=== PATIENT | female | born 1970 | race Caucasian/White ===

== ENCOUNTER 2019-09-23 08:52 | Emergency (ER) | payer SELFPAY ==
[2019-09-23] VITALS (7 sets, daily range): BP systolic 92–149; BP diastolic 69–78; PULSE 50–76; RESP 16–20; TEMP 36.7; O2SAT 98–100; BMI 24.5
--- NOTE | 2019-09-23 09:04 | CT_ITS ---
PROCEDURE: CT ABDOMEN PELVIS WO CON CLINICAL INDICATION: pain Left upper quadrant pain radiating to back COMPARISON: No exams were available for comparison TECHNIQUE: Axial images obtained with sagittal and coronal reformats. All CT scans at the facility use one or more dose reduction, viz: automated exposure control, ma/kV adjustment per patient size (including targeted exams where dose is matched to indication, i.e. head), or iterative reconstruction technique. FINDINGS: Lower thorax: The lower lung toussaint are clear and there is no pleural fluid. Cardiac size is normal. ABDOMEN: Liver: No masses or biliary dilatation. Gallbladder: The gallbladder is normal size but shows a subtle heterogenic appearance to the bile raising the possibility of biliary sludge. Consider follow-up ultrasound right upper quadrant for additional evaluation. Pancreas: No masses or peripancreatic fluid collections. Spleen: unremarkable Adrenals: unremarkable Kidneys/ureters: The kidneys are normal in size, there is mild hydronephrotic change left kidney. There is a small 2-3 mm calculus near the UV junction left side. There are clips on both sides of the pelvis likely tubal ligation clips. ABDOMEN & PELVIS: Stomach bowel: The stomach and small bowel appear normal. The appendix is upper limits normal size but partially air-filled and there are no periappendiceal inflammatory changes. Peritoneum: No abnormal fluid collections. No obvious inflammatory changes. No free air. Lymph nodes: No enlarged lymph nodes apparent. Vasculature: No evidence of abdominal aortic aneurysm. No retroperitoneal hemorrhage evident. Bones: No acute fracture PELVIS: Reproductive: The uterus is upper limits of normal in size and mildly retroverted. Bladder: The bladder is decompressed. Appendix: Unremarkable. No distention or periappendiceal phlegmonous change. IMPRESSION: Mild hydronephrotic change left kidney and mild hydroureter proximally with 2-3 mm calculus sitting near the UV junction. Subtle changes of the gallbladder as described above suggesting possible biliary sludge. Dictated by: Dr. Say Hickey MD 09/23/2019 10:[address] Say iHckey MD in [place] 09/23/2019 10:05
[2019-09-23 09:23] LABS: Appearance,Urine CLEAR (Clear); Bilirubin,Urine Negative (Negative); Blood, Urine 1+ (Negative); Color,Urine YELLOW (Yellow); Glucose,Urine (UA) Negative (Negative); Ketones,Urine 1+ (Negative); Leukocyte Esterase,Urine Negative (Negative); Microscopic, Urine URINE MICROSCOPIC (MICROSCOPIC); Nitrate,Urine Negative (Negative); PH,Urine 5.5 (5.0-8.5); Protein,Urine Negative (Negative); Specific Gravity, Urine >= 1.030 (1.005-1.030); Urobilinogen,Urine 0.2 EU/dl (0.2)
[2019-09-23 09:27] LABS: Basophils % 0.3 % (0.1-2.0); Eosinophils # 0.1 K/mm3 (0.0-0.4); Eosinophils % 0.4 % (0.1-12.0); Hematocrit 41.7 % (37.0-47.0); Hemoglobin 14.4 g/dL (12.2-16.2); Lymphocytes # 1.7 K/mm3 (0.7-4.5); Mean Corpuscular HGB Conc 34.6 g/dL (31.8-35.4); Mean Corpuscular Hemoglobin 33.2 pg (27.0-31.2); Mean Platelet Volume 6.9 fl (7.4-10.4); Monocytes # 0.9 K/mm3 (0.1-1.0); Monocytes % 6.3 % (1.7-9.3); Neutrophils # 10.7 K/mm3 (1.8-7.8); Neutrophils % 79.9 % (37.0-80.0); Platelet Count 229 K/mm3 (142-424); Red Blood Count 4.34 M/mm3 (4.20-5.40); Red Cell Distribution Width 14.3 % (11.5-17.5); White Blood Count 13.4 K/mm3 (4.8-10.8)
[2019-09-23 09:29] LABS: Chloride 105 mmol/L (98-107); Potassium 4.4 mmoL/L (3.5-5.1); Sodium 134 mmol/L (136-145)
[2019-09-23 09:32] LABS: Alanine Aminotransferase 22 U/L (12-78); Albumin Level 4.3 g/dl (3.5-5.0); Albumin/Globulin Ratio 1.4 (1.1-1.8); Alkaline Phosphatase 84 U/L (38-126); Anion Gap 10.4 mEq/L (5-15); Aspartate Amino Transferase 64 U/L (14-36); Bilirubin,Total 0.8 mg/dl (0.2-1.3); Blood Urea Nitrogen 14 mg/dl (7-17); Calcium 9.4 mg/dl (8.4-10.2); Carbon Dioxide 23 mmol/L (22.0-30.0); Creatinine Clearance Estimated 58 mL/min (50-200); Estimated Glomerular Filt Rate 53 ml/min (>60); GFR (African American) 64 ML/MIN (>60); Glucose 118 mg/dl (74-100); Total Protein,Serum 7.3 g/dl (6.3-8.2)
[2019-09-23 09:36] LABS: Bacteria,Urine Trace /lpf
--- NOTE | 2019-09-23 10:29 | HMH.EDABDPAI ---
ED Disposition Clinical Impression: Calculus of kidney Disposition: Home, Self-Care Condition on Discharge: Good Instructions: DI for Acute Abdomen, DI for Acute Pain -- Child Referrals: Provider,Referral, [Primary Care Provider] - - Critical Care Critical Care Time: No Attestation: On 09/23/19, the high probability of a clinically significant, sudden or life threatening deterioration of the following system(s) required my full and direct attention, intervention and personal management. The time I documented below is in addition to time spent performing reported procedures but includes the following listed in this critical care notation. Medical Decision Making - Medical Records Medical records reviewed: Yes: I reviewed the patient's medical records. - Roberto Inquiry Pt receiving controlled substance: No Vital Signs: 09/23/19 08:53 09/23/19 09:47 09/23/19 10:20 Temperature 98.1 F Temperature Source Oral Pulse Rate [Radial] 62 59 L 54 L Respiratory Rate 18 20 20 Blood Pressure [Right Arm] 128/75 130/73 120/74 Blood Pressure Mean [Right Arm] 92 92 89 Blood Pressure Source [Right Arm] Automatic Cuff Automatic Cuff Automatic Cuff Blood Pressure Position [Right Arm] Sitting Sitting Sitting 02 Sat by Pulse Oximetry 98 100 100 Oxygen Delivery Method Room Air Room Air 09/23/19 10:49 Temperature Temperature Source Pulse Rate [Radial] 52 L Respiratory Rate 20 Blood Pressure [Right Arm] 149/78 H Blood Pressure Mean [Right Arm] 101 Blood Pressure Source [Right Arm] Automatic Cuff Blood Pressure Position [Right Arm] Sitting 02 Sat by Pulse Oximetry 98 Oxygen Delivery Method - Lab Data Lab results reviewed: Yes: I reviewed the patient's lab results. Lab Results 09/23/19 09:10: Urine Color Yellow, Urine Appearance Clear, Urine pH 5.5, Ur Specific [place] >= 1.030, Urine Protein Negative, Urine Glucose (UA) Negative, Urine Ketones 1+, Urine Blood 1+, Urine Nitrate Negative, Urine Bilirubin Negative, Urine Urobilinogen 0.2, Ur Leukocyte Esterase Negative, Urine RBC 5-10, Urine WBC 5-10, Ur Squamous Epith Cells 5-10, Urine Bacteria Trace 09/23/19 09:10: WBC 13.4 H, RBC 4.34, Hgb 14.4, Hct 41.7, MCV 96.0, MCH 33.2 H, MCHC 34.6, RDW 14.3, Plt Count 229, MPV 6.9 L, Neut % (Auto) 79.9, Lymph % (Auto) 13.0, [place] % (Auto) 6.3, Eos % (Auto) 0.4, Baso % (Auto) 0.3, Neut # (Auto) 10.7 H, Lymph # (Auto) 1.7, [place] # (Auto) 0.9, Eos # (Auto) 0.1, Baso # (Auto) 0.0 09/23/19 09:10: Sodium 134 L, Potassium 4.4, Chloride 105, Carbon Dioxide 23, Anion Gap 10.4, BUN 14, Creatinine 1.10 H, Estimated Creat Clear 58, Estimated GFR 53 L, Est GFR ( Amer) 64, Glucose 118 H, Calcium 9.4, Total Bilirubin 0.8, AST 64 H, ALT 22, Alkaline Phosphatase 84, Total Protein 7.3, Albumin 4.3, Globulin 3.0, Albumin/Globulin Ratio 1.4 Result diagrams: 09/23/19 09:10 09/23/19 09:10 Orders (Tests/Meds): ED MEDICATIONS Discontinued Medications Generic Name Dose Route Start Last Admin Trade Name Freq PRN Reason Stop Dose Admin Amlodipine Besylate 10 mg 09/23/19 10:37 09/23/19 10:50 Norvasc 5mg Tablet PO 09/23/19 10:38 10 mg ONCE ONE Administration Fentanyl Citrate 75 mcg 09/23/19 11:35 09/23/19 11:36 Fentanyl 250mcg/5ml Vial IV 09/23/19 11:36 75 mcg ONCE ONE Administration Sodium Chloride 1,000 mls @ 999 mls/hr 09/23/19 09:15 09/23/19 09:13 Sod Chlor 0.9% 1000ml Bag IV 09/23/19 10:15 999 mls/hr .Q1H1M [place] Administration Ketamine HCl 50 mg 09/23/19 10:31 09/23/19 10:50 Ketamine 500mg/10ml Vial IV 09/23/19 10:32 50 mg ONCE ONE Administration Morphine Sulfate 4 mg 09/23/19 09:07 09/23/19 09:13 Morphine 4mg/Ml Syringe IV 09/23/19 09:08 4 mg ONCE ONE Administration Ondansetron HCl 4 mg 09/23/19 09:05 09/23/19 09:13 Zofran 4mg/2ml Vial IV 09/23/19 09:06 4 mg ONCE ONE Administration Prochlorperazine Edisylate 10 mg 09/23/19 11:13 09/23/19 11:13 Compazine 1
--- NOTE | 2019-09-23 10:46 | PC.NURSE ---
Dr Harvinder garrett
--- NOTE | 2019-09-23 10:50 | PC.NURSE ---
Dr. James speaking with Dr. Blanton.
--- NOTE | 2019-09-23 11:37 | PC.NURSE ---
pt still having alot of pain more pain meds ordered
--- NOTE | 2019-09-23 13:06 | HMH.CONS ---
*Admission Date: 09/23/19 *Reason for consult:: Left ureteral stone with obstruction *History of present illness: Patient is a 48-year-old white female with the acute onset of left flank pain today. She presented to the emergency room for evaluation. CT scan shows a 2 to 3 mm distal left ureteral stone with some mild hydroureteronephrosis. Her white count is 13.4 and her creatinine is 1.1. She states she has had a lot of nausea and has been unable to keep anything down today. She denies a history of kidney stones. She denies any fevers or chills at home. The emergency room staff has been able to get her pain under control. She appears comfortable at the time that I am seeing her. [facility] History Medical History: Denies:: Cancer, Diabetes Mellitus Type 1, Diabetes Mellitus Type 2, Gastrointestinal Bleed, Hypertension, Internal Pacemaker, MRSA, Renal Disease, Ulcer *Have you ever received a pneumonia vaccine?: No *Have you received a flu vaccine this season?: No Other Surgeries: Yes: . No: Pacemaker Amputation: No Fractures: No - *Social History Smoking Status: Current every day smoker Tobacco Type: cigarettes # Packs/Day (cigarettes): 1 Alcohol Intake: never *Occupational Status:: other Housing: house Household Members: significant other, friend(s) *Travel in the last 8 weeks: None Family Hx:: Coronary Artery Disease Review of Systems - Review of Systems Review of systems:: pertinent systems reviewed and negative unless documented below Meds Home Medications Medication Instructions Recorded Confirmed Type Azithromycin [Z-Luis 250mg Tab*] 250 mg PO UD DOSE PK #6 tab 03/23/19 Rx Brompheniramine/Pseudoephed/Dm 5 ml PO Q6HP PRN #240 syrup 03/23/19 Rx [Bromfed Dm Cough Syrup] Ondansetron [Zofran 4mg ODT] 4 mg PO Q8HP PRN #20 tab.rapdis 03/23/19 Rx methylPREDNISolone [Medrol] 4 mg PO DIRECTED 6 Days #21 03/23/19 Rx tab.ds.pk Allergies Allergy/AdvReac Type Severity Reaction Status Date / Time No Known Allergies Allergy Verified 07/18/18 13:55 Exam Vital signs and Labs for Last 24 Hours: Temp Pulse Resp BP Pulse Ox 98.1 F 76 20 92/69 L 98 09/23/19 08:53 09/23/19 12:53 09/23/19 12:53 09/23/19 12:53 09/23/19 12:53 Laboratory Results - last 24 hr 09/23/19 09:10: Urine Color Yellow, Urine Appearance Clear, Urine pH 5.5, Ur Specific [place] >= 1.030, Urine Protein Negative, Urine Glucose (UA) Negative, Urine Ketones 1+, Urine Blood 1+, Urine Nitrate Negative, Urine Bilirubin Negative, Urine Urobilinogen 0.2, Ur Leukocyte Esterase Negative, Urine RBC 5-10, Urine WBC 5-10, Ur Squamous Epith Cells 5-10, Urine Bacteria Trace 09/23/19 09:10: WBC 13.4 H, RBC 4.34, Hgb 14.4, Hct 41.7, MCV 96.0, MCH 33.2 H, MCHC 34.6, RDW 14.3, Plt Count 229, MPV 6.9 L, Neut % (Auto) 79.9, Lymph % (Auto) 13.0, [place] % (Auto) 6.3, Eos % (Auto) 0.4, Baso % (Auto) 0.3, Neut # (Auto) 10.7 H, Lymph # (Auto) 1.7, [place] # (Auto) 0.9, Eos # (Auto) 0.1, Baso # (Auto) 0.0 09/23/19 09:10: Sodium 134 L, Potassium 4.4, Chloride 105, Carbon Dioxide 23, Anion Gap 10.4, BUN 14, Creatinine 1.10 H, Estimated Creat Clear 58, Estimated GFR 53 L, Est GFR ( Amer) 64, Glucose 118 H, Calcium 9.4, Total Bilirubin 0.8, AST 64 H, ALT 22, Alkaline Phosphatase 84, Total Protein 7.3, Albumin 4.3, Globulin 3.0, Albumin/Globulin Ratio 1.4 I & O for Last 24 hours: Intake & Output 09/20/19 09/21/19 09/22/19 09/23/19 23:59 23:59 23:59 23:59 Weight 58.967 kg Narrative: Thin white female in no apparent distress Pupils equal round reactive to light Head is normocephalic Neck is symmetric Normal respiratory effort Abdomen soft nondistended Some mild left CVA tenderness Alert and oriented x3 Cranial nerves grossly intact Internal Medicine - CN: Reslt - Labs CBC & Chem 7: 09/23/19 09:10 09/23/19 09:10 Labs: Short CBC 09/23/19 Range/Units 09:10 WBC 13.4 H (4.8-10.8) K/mm3 Hgb 14.4 (12.2-16.
== END 2019-09-23 15:26 | disposition home or self-care (01) ==
PROVIDERS: Emergency Provider Family Medicine
DX: N20.0 Calculus of kidney (principal); N13.2 Hydronephrosis with renal and ureteral calculous obstruction; F17.210 Nicotine dependence, cigarettes, uncomplicated
CPT/HCPCS: 74176; 80053; 81001; 85025; 96365; 96366; 96375; 99284; J2405

== ENCOUNTER → 2019-10-26 13:20 | Outpatient (CLI) | payer MEDICAID, SELFPAY ==
--- NOTE | 2019-10-26 13:26 | US_ITS ---
PROCEDURE: US TRANSVAGINAL CLINICAL INDICATION: IRREGULAR PERIODS COMPARISON: No exams were available for comparison FINDINGS: The uterus is heterogeneous and displays 3 probable fibroids of which the largest is in the lower uterine segment measuring 29 millimeters x 21 millimeters. The other 2 fibroids measure respectively 8 millimeters x 7 millimeters and 5 millimeters. The uterus measures 75 millimeters x 47 millimeters x 53 millimeters. Both ovaries are of normal size, echogenicity, and Doppler signal. The right ovary measures 19 millimeters x 14 millimeters x 17 millimeters. The left ovary measures 36 millimeters x 60 millimeters X 60 millimeters. There are no abnormal fluid collections. IMPRESSION: Fibroid uterus Dictated by: Christiano Araiza 10/26/2019 14:08 Electronically signed by Christiano Araiza in [place] 10/26/2019 14:08
--- NOTE | 2019-10-26 13:30 | CA_ITS ---
APPROVED REPORT Left Lower Extremity Venous Study for DVT. Medical Lab Specialist: ROLF ElizabethT Indications Lower Extremity Edema: Left LLE SWELLING X 1 YEAR Vein Imaging CFV (L): compressive, spontaneous, phasic, augmentation FEM (L): compressive, spontaneous, phasic, augmentation POP (L): compressive, spontaneous, phasic, augmentation PTV (L): Compressible GSV (L): Compressible Peroneals (L):Compressible GAS (L): Compressible Findings Study suggests no evidence of DVT of the left lower extremity. Study suggests no evidence of SVT of the left lower extremity. Conclusion Study suggests no evidence of DVT of the left lower extremity. Study suggests no evidence of SVT of the left lower extremity. Electronically signed by : Christiano Araiza, 10/27/2019 09:17:54
== END ==
PROVIDERS: PCP Nurse Practitioner Family; Visit Provider Nurse Practitioner Family
DX: M79.89 Other specified soft tissue disorders (principal); I83.892 Varicose veins of left lower extremity with other complications; N92.6 Irregular menstruation, unspecified
CPT/HCPCS: 76830; 93971

== ENCOUNTER → 2020-08-13 14:41 | Outpatient (CLI) | payer BC, SELFPAY ==
--- NOTE | 2020-08-13 14:52 | US_ITS ---
PROCEDURE: US TRANSVAGINAL CLINICAL INDICATION: pelvic pain COMPARISON: US US TRANSVAGINAL from 10/26/2019 FINDINGS: UTERUS: 7cm x 5cmx 4cm with a combined endometrial thickness of 5.8mm LEFT OVARY: [id number] with a volume of 5ml. RIGHT OVARY: [id number] with a volume of 6.3ml. The uterus is retroverted. Within the fundus of the uterus there is a 2.8 x 2 cm area of decreased heterogeneous echogenicity consistent with a fibroid. In the mid aspect of the body of the uterus anteriorly an additional fibroid is noted measuring 1 cm. This abuts the endometrium. There is a 1.6 cm septated left ovarian cyst. No cul-de-sac fluid is evident. IMPRESSION: 1. Retroverted uterus containing fibroids. 2. Small septated left ovarian cyst. Dictated by: Eusebio Zaldivar MD 08/14/2020 09:51 Eusebio Zaldivar MD in [place] 08/14/2020 09:51
== END ==
PROVIDERS: PCP Nurse Practitioner Family; Visit Provider Nurse Practitioner Obstetrics & Gynecology
DX: R10.2 Pelvic and perineal pain (principal)
CPT/HCPCS: 76830